=== PATIENT | female | born 1945 | race Caucasian/White ===

== ENCOUNTER 2025-05-10 12:37 | Outpatient (CLI) | payer MEDICARE ==
--- NOTE | 2025-05-10 17:12 | VASCULAR REPORT ---
Indication: History of occluded left common iliac artery Technique: Real- time ultrasound images of the lower extremity with grayscale, color, and spectral wave Doppler. Comparison: None Findings: Monophasic waveforms throughout the left lower extremity. Diffuse left lower extremity atherosclerotic plaque. Peak systolic velocities are as follows (in cm/s): Left: Common femoral artery: 73 Profunda femoris: 50 Proximal superficial femoral: 48 Mid superficial femoral artery: 61 Distal superficial femoral artery: 84 Popliteal artery: 41 Posterior tibial artery: 25 Anterior tibial artery: 48 Peroneal: 19 Left SERVANDO 0.67. Impression: Moderate to advanced left lower extremity peripheral arterial disease with diffuse monophasic waveforms, atherosclerotic plaque and diminished SERVANDO measuring 0.67 Given the diffuse monophasic waveforms could this could also be secondary to inflow disease from the aortoiliac circulation, especially given the provided history of left iliac artery occlusion
== END 2025-05-10 23:59 | disposition home or self-care (01) ==
LOC: VAS 12:37
PROVIDERS: ATTEND Surgery
DX: I73.9 Peripheral vascular disease, unspecified (principal)
CPT/HCPCS: 93922; 93926